=== PATIENT | female | born 1995 | race Hispanic/Latino ===

== ENCOUNTER 2019-05-30 14:26 | Outpatient (CLI) | payer BC ==
--- NOTE | 2019-05-30 15:57 | ULT ---
LIMITED LEFT BREAST ULTRASOUND: 05/30/19 PROVIDED CLINICAL HISTORY: Left breast mass. FINDINGS: Comparison 12/05/18. Limited sonographic interrogation is performed of the left breast at the 9 o'clock position. Somewhat macrolobulated hypoechoic mass measuring about 2.6 x 1.9 x 2.2 cm is redemonstrated. No significant interval change in the sonographic appearance or significant change in size. IMPRESSION: 1. 2.6 cm hypoechoic mass at the 9 o'clock position of the left breast, in a patient of this age statistically reflecting fibroadenoma. 2. One year follow-up ultrasound is recommended in the absence of surgical excision. POS: OFF
== END 2019-05-30 14:27 | disposition home or self-care (01) ==
LOC: BICULT 14:26
PROVIDERS: ATTEND Advanced Practice Midwife
DX: N63.24 Unspecified lump in the left breast, lower inner quadrant (principal)

== ENCOUNTER 2019-08-20 14:00 | Outpatient (CLI) | payer BC ==
--- NOTE | 2019-08-20 15:04 | ULT ---
OB ULTRASOUND: DATE: 08/20/2019 HISTORY: anatomy. FINDINGS: A single, live intrauterine gestation is seen, with measurements corresponding to an estimated gestat ional age of 20 weeks/1 day and BRYCE at 01/06/2020. Estimated weight measures 327 gm, or 12 oz (47% by Hadlock criteria). Biometry: BPD: 4.62 cm, 20 weeks/0 days HC: 17.63 cm, 20 weeks/1 day AC: 15.10 cm, 20 weeks/3 days FL: 3.11 cm, 19 weeks/5 days heart rate measures 147 bpm. Placenta is anteriorly located without evidence of placenta previa. MONISHA measures 11.6 cm. Cervical length measures 3.2 cm. A 3 vessel cord, cord insertion, kidneys, bladder, stomach, 4 chamber heart, lateral ventricles , cerebellum, spine, lips/nose, and upper/lower extremities are visualized. No definite anomali es are seen. IMPRESSION: Single, live intrauterine of 20 weeks/1 day estimated gestational age and BRYCE at 01/06/2020 . POS: OFF
== END 2019-08-20 14:01 | disposition home or self-care (01) ==
LOC: BICULT 14:00
PROVIDERS: ATTEND Family Medicine
DX: O09.892 Supervision of other high risk pregnancies, second trimester (principal); Z3A.20 20 weeks gestation of pregnancy
CPT/HCPCS: 76805

== ENCOUNTER → 2019-10-14 | Day surgery (SDC) | payer BC ==
--- NOTE | 2019-10-14 15:42 | ULT ---
LEFT BREAST ULTRASOUND: HISTORY: A 24-year-old female with breast lump in the upper inner quadrant. COMPARISON: 06/09/2019. FINDINGS: Sonographic evaluation of the left breast at the 9 o'clock position demonstrates a hypoechoic nonshad owing well-circumscribed lobulated mass measuring 2.9 x 1.7 x 2 cm most likely due to a fibroadenoma. Imaging characteristics are similar to the previous exam while increase in size may be due to hormo nal stimulation or differences in sonographic technique/looper operator differences. The patient also reported a palpable abnormality at the 4-5 o'clock position of the left breast which demonstrates a nonshadowing solid-appearing well circumscribed mass measuring 1.4 x 0.8 x 1 cm. Both these masses are statistically likely to represent fibroadenomas. IMPRESSION: BIRADS category 3 - probably benign findings. Six-month followup ultrasound is recommended. Discussed over the telephone with Dr. Cedillo at 2:45 p.m. CODE CR POS: OFF
== END ==
LOC: BICULT 13:49
PROVIDERS: ATTEND Family Medicine
DX: O92.29 Other disorders of breast associated with pregnancy and the puerperium (principal); Z3A.00 Weeks of gestation of pregnancy not specified

== ENCOUNTER 2019-12-25 09:44 | Outpatient (CLI) | payer BC, OTHER ==
[2019-12-26 11:51] LABS: SARS-CoV-2 MS2 Positive; SARS-CoV-2 N Gene Negative; SARS-CoV-2 S Gene Negative; SARS-CoV-2 orf1ab Negative
== END 2019-12-25 09:45 | disposition home or self-care (01) ==
LOC: ERS 09:44
PROVIDERS: ATTEND Family Medicine
DX: Z20.828 Contact with and (suspected) exposure to other viral communicable diseases (principal)
CPT/HCPCS: 87635; U0003

== ENCOUNTER 2019-12-25 21:28 | Inpatient (IN) | payer BC, OTHER ==
[2019-12-25] MEDS ORDERED: Butorphanol Tartrate 1 MG/ML VIAL SLOW IVP PRN (21:43)
[2019-12-25] MEDS ORDERED: Promethazine HCl 25 MG/ML VIAL IM PRN (21:43)
[2019-12-25] MEDS ORDERED: Ondansetron PF 4 MG/2 ML Vial IVP PRN (21:43)
[2019-12-25] MEDS ORDERED: HYDROcodone/Acetaminophen 5/325 mg Tablet PO PRN (21:43)
[2019-12-25] MEDS ORDERED: NS / Oxytocin 40 units/1000ml 1,000 ML IV PRN (21:43)
[2019-12-25] MEDS ORDERED: Methylergonovine 0.2 MG/ML VIAL IM PRN (21:43)
[2019-12-25] MEDS ORDERED: Misoprostol 200 MCG TAB PR PRN (21:43)
[2019-12-25] MEDS ORDERED: Diphenoxylate HCl/Atropine Tablet PO PRN (21:43)
[2019-12-25] MEDS ORDERED: Carboprost 250 MCG/ML AMP IM PRN (21:43)
[2019-12-25] MEDS ORDERED: Ibuprofen 800 MG TAB PO PRN (21:43)
[2019-12-25] MEDS ORDERED: Lidocaine 1% (PF) 30 ML VIAL SC PRN (21:43)
[2019-12-25] MEDS ORDERED: hydrALAZINE 20 MG/ML VIAL SLOW IVP PRN (21:43)
[2019-12-25] MEDS ORDERED: NS w/ Oxytocin 10 units 500 ML IV SCH ×2 (21:45)
[2019-12-25] MEDS: Lactated Ringer's 1,000 ML IV SCH (22:13)
[2019-12-25 22:20] VITALS: BMI 41.1
[2019-12-25 22:26] LABS: Hemoglobin 10.9 g/dL (12.0-16.0); Mean Corpuscular HGB CONC 32.8 g/dL (32.0-36.0); Mean Corpuscular Hemoglobin 26.2 pg (27.0-31.0); Mean Corpuscular Volume 79.7 fL (78.0-98.0); Mean Platelet Volume 7.2 fL (7.4-10.4); Platelet Count 275 thou/uL (130-400); RBC Distribution Width 15.3 % (11.5-14.5); Red Blood Cell (RBC) Count 4.15 mill/uL (4.20-5.40); White Blood Cell (WBC) Count 9.8 thou/uL (4.8-10.8)
[2019-12-25 23:04] LABS: HBSAg Index 0.15 S/CO (0-0.99); Hep B Surf Ag Non-Reactive S/CO (NonReactive)
[2019-12-25 23:37] LABS: Syphilis Antibody Nonreactive (Nonreactive); Syphilis Antibody Index 0.03 S/CO (<1.00 Non-Reactive)
[2019-12-25] MEDS: Misoprostol 100 MCG TAB PO SCH (23:39)
[2019-12-26] MEDS: Misoprostol 100 MCG TAB PO SCH (03:59)
[2019-12-26] MEDS: Lactated Ringer's 1,000 ML IV SCH ×3 (05:54→15:42)
[2019-12-26] MEDS ORDERED: Fentanyl 4 mcg/Bup 0.1% Cadd 100 ML ONE (11:54)
[2019-12-26] MEDS ORDERED: EPHEDRINE 25 MG/5 ML SYRINGE SLOW IVP PRN (13:02)
[2019-12-26] MEDS ORDERED: Naloxone HCl 0.4 mg/ml Vial IVP PRN ×2 (13:02)
[2019-12-26] MEDS ORDERED: Ondansetron PF 4 MG/2 ML Vial IVP PRN ×2 (13:02→20:47)
[2019-12-26] MEDS ORDERED: Acetaminophen 325 MG TAB PO PRN (13:02)
[2019-12-26] MEDS ORDERED: Promethazine HCl 25 MG/ML VIAL IM PRN ×2 (13:02→20:47)
[2019-12-26] MEDS ORDERED: diphenhydrAMINE 50 MG/ML VIAL IVP PRN (13:02)
[2019-12-26] MEDS ORDERED: Lactated Ringer's 500 ML IV PRN (13:02)
[2019-12-26] MEDS ORDERED: Fentanyl 4 mcg/Bupivacaine 0.1% Cassette 100 ML EPIDURAL SCH (13:15)
[2019-12-26] MEDS ORDERED: Communication Order-Pharmacy FS SCH (13:15)
[2019-12-26] MEDS ORDERED: Bisacodyl 10 MG SUPP PR PRN (20:47)
[2019-12-26] MEDS ORDERED: Benzocaine-Menthol 82.5 ML CAN TOP PRN (20:47)
[2019-12-26] MEDS ORDERED: Lanolin Ointment 7 GM TUBE TOP PRN (20:47)
[2019-12-26] MEDS ORDERED: diphenhydrAMINE 25 MG CAP PO PRN (20:47)
[2019-12-26] MEDS ORDERED: Milk Of Magnesia 30 ML UDCUP PO PRN (20:47)
[2019-12-26] MEDS ORDERED: HYDROcodone/Acetaminophen 5/325 mg Tablet PO PRN ×2 (20:47)
[2019-12-26] MEDS ORDERED: Preparation H Ointment 28 GM TUBE PR PRN (20:47)
[2019-12-26] MEDS ORDERED: hydrALAZINE 20 MG/ML VIAL SLOW IVP PRN (20:47)
[2019-12-26] MEDS ORDERED: NS / Oxytocin 40 units/1000ml 1,000 ML IV SCH (20:47)
[2019-12-26] MEDS: Ibuprofen 800 MG TAB PO SCH (23:02)
[2019-12-26] MEDS: Docusate Calcium (SURFAK) 240 MG CAP PO SCH (23:02)
[2019-12-27 06:15] LABS: Hemoglobin 8.4 g/dL (12.0-16.0); Mean Corpuscular HGB CONC 32.3 g/dL (32.0-36.0); Mean Corpuscular Hemoglobin 25.9 pg (27.0-31.0); Mean Corpuscular Volume 80.3 fL (78.0-98.0); Mean Platelet Volume 7.3 fL (7.4-10.4); Platelet Count 233 thou/uL (130-400); Red Blood Cell (RBC) Count 3.24 mill/uL (4.20-5.40); White Blood Cell (WBC) Count 14.7 thou/uL (4.8-10.8)
[2019-12-27] MEDS: Ibuprofen 800 MG TAB PO SCH ×3 (06:37→21:08)
[2019-12-27] MEDS ORDERED: Adacel (T-DAP) 0.5 ML SYRINGE IM ONE (09:00)
[2019-12-27] MEDS: Docusate Calcium (SURFAK) 240 MG CAP PO SCH ×2 (09:08→21:08)
[2019-12-27] MEDS: Prenatal Vitamin 1 TAB PO SCH (09:08)
[2019-12-27] MEDS: Ferrous Sulfate 325 MG TAB PO SCH ×2 (09:08→19:01)
[2019-12-27] MEDS: Misoprostol 100 MCG TAB PO SCH (11:57)
[2019-12-28] MEDS: Ibuprofen 800 MG TAB PO SCH (05:01)
[2019-12-28] MEDS: Ferrous Sulfate 325 MG TAB PO SCH (08:08)
[2019-12-28] MEDS: Prenatal Vitamin 1 TAB PO SCH (08:08)
[2019-12-28] MEDS: Docusate Calcium (SURFAK) 240 MG CAP PO SCH (08:08)
[2019-12-28 09:02] VITALS: BP 100/57; TEMP 98
== END 2019-12-28 12:17 | disposition home or self-care (01) | DRG 805 ==
LOC: L&D 21:28 → 3SW 12-26 22:32
PROVIDERS: ADMIT Family Medicine; ATTEND Family Medicine
PROC: 10E0XZZ Delivery of Products of Conception, External Approach (ICD-10-PCS; principal; 2019-12-25)
PROC: 10907ZC Drainage of Amniotic Fluid, Therapeutic from Products of Conception, Via Natural or Artificial Opening (ICD-10-PCS; 2019-12-25)
PROC: 0W8NXZZ Division of Female Perineum, External Approach (ICD-10-PCS; 2019-12-25)
DX: O26.62 Liver and biliary tract disorders in childbirth (principal); K83.1 Obstruction of bile duct; Z37.0 Single live birth; O99.214 Obesity complicating childbirth; Z3A.38 38 weeks gestation of pregnancy; E66.9 Obesity, unspecified; O70.9 Perineal laceration during delivery, unspecified
CPT/HCPCS: 36415; 51702; 85027; 86780; 86850; 86900; 86901; 87340; 87635; J0595; J2590; U0003